=== PATIENT | male | born 1985 | race Caucasian/White ===

== ENCOUNTER 2020-10-24 17:42 | Emergency (ER) | payer SELFPAY ==
[2020-10-24 18:31] VITALS: PULSE 106; RESP 16; TEMP 36.8; O2SAT 91; BMI 27.8
--- NOTE | 2020-10-24 20:51 | ED_ITS ---
HPI - Psych General: Chief Complaint: Psychiatric Symptoms Stated Complaint: HALLUCINATIONS/ WANTS DETOX Time Seen by Provider: 10/24/20 20:37 History of Present Illness: HPI Narrative: The patient is a 35-year-old male who says he comes to the ER to get clean. He says he used methamphetamines earlier today and he has been hallucinating. He says signs are talking to him and he continues to see them. Denies suicidal and homicidal ideations. He is paranoid Context: recent drug abuse Associated psychiatric symptoms: auditory hallucinations Associated symptoms: Reports auditory hallucinations; Deny homicidal ideation or suicidal ideation Review of Systems General: Reports: 10 or more systems reviewed and unremarkable except in HPI and below Const: Denies: fatigue Eyes: Denies: change in vision, blurry vision or eye redness ENMT: Denies: throat pain, swelling of lips/tongue, ear or mastoid pain or nasal congestion Card: Denies: chest pain, palpitations, irregular heart rhythm, edema, dyspnea on exertion or orthopnea Resp: Denies: dyspnea, productive cough or non-productive cough GI: Denies: abdominal pain, diarrhea or GI cramping : Denies: flank pain, urinary frequency or urinary urgency Musc: Denies: neck pain, back pain, extremity pain, joint pain, joint redness, limited range of motion or muscle weakness Skin/Breast: Denies: rash, pruritus, erythema, skin pain or skin tenderness Neuro: Denies: headache(s), numbness in extremities, weakness in extremities, sensory changes, difficulty walking, dizziness, confusion or Slurred speech present Psych: Reports: anxiety and auditory hallucinations; Denies: suicidal ideation or homicidal ideation Endo: Denies: polyuria All/Imm: Denies: urticaria, throat swelling or tongue swelling Physical Exam Const: COMMON NORMALS: no acute distress, average body habitus, patient oriented x3, no limitations, alert and well nourished GENERAL APPEARANCE: cooperative, well kempt, well developed and anxious ORIENTATION/CONSCIOUSNESS: Yes awake, Yes oriented to person, Yes oriented to place and Yes oriented to time HENMT: COMMON NORMALS: normocephalic, external ears normal and Normal external nose present HEAD & SCALP: normal to inspection and normocephalic NOSE: Normal external nose present EXTERNAL EAR: Yes external ears normal MOUTH: Normal oral and palatal mucosa present THROAT: posterior oropharynx normal OTHER: Chronically poor dentition Eye: COMMON NORMALS: Equal, round and reactive pupils present and EOMs intact bilaterally GENERAL EYE: appearance normal, both eyes and all related structures PUPIL: Yes Equal, round and reactive pupils present Neck/C-Spine: COMMON NORMALS: full ROM, no lymphadenopathy, no meningeal signs and no JVD GENERAL: Yes normal visual inspection Lymph: LYMPHATIC: no lymphadenopathy noted Chest: COMMONS NORMALS: normal inspection of the chest and normal palpation of entire chest wall Resp: COMMON NORMALS: normal respiratory effort, No retractions, No use of accessory muscles, clear to auscultation bilaterally and percussion normal EFFORT & INSPECTION: Yes able to speak in complete sentences AUSCULTATION: clear to auscultation bilaterally PERCUSSION: percussion normal Cardio: COMMON NORMALS: no JVD, regular rate, regular rhythm, S1 normal heart sound present, S2 normal heart sound present and Peripheral pulses 2+ throughout RATE: regular rate RHYTHM: regular rhythm HEART SOUNDS: S1 normal heart sound present and S2 normal heart sound present PERIPHERAL PULSES: Peripheral pulses 2+ throughout GI: COMMON NORMALS: Normal to inspection, nondistended, normoactive bowel sounds present, Soft to palpation, non-tender and no masses INSPECTION: Yes normal to inspection PALPATION: Yes Soft to palpation : COMMON NORMALS: Yes no CVA tenderness BLADDER/KIDNEY EXAM: Yes no CVA tenderness Back/Pelvis: COMMON NORMALS: no CVA tenderness, thoracic and lumbar spine normal to inspection, no thoracic nor lumbar tenderness and thoraco-lumbar ROM normal Extremity: COMMON NORMALS: normal to inspection, full ROM, capillary refill normal, no joint enlargement and no pedal edema GENERAL: Yes normal exam except as noted Neuro: COMMON NORMALS: patient oriented x3, CN's II-XII intact bilaterally, moves all extremities, no focal motor deficits, no sensory deficits noted and gait normal SENSORIUM/ORIENTATION: Yes alert, Yes oriented to person, Yes oriented to place and Yes oriented to time MENINGEAL SIGNS: Yes no meningeal signs Psych: COMMON NORMALS: cooperative, normal affect and speech normal APPEARANCE: Yes well kempt ATTITUDE: Yes paranoid ACTIVITY/MOTOR BEHAVIOR: Yes fidgeting SPEECH: Yes normal speech MOOD & AFFECT: Yes elevated mood THOUGHT CONTENT: No Suicidality present, No Homicidality present and Yes Hallucination(s) present auditory Skin: COMMON NORMALS: no rashes or lesions noted GENERAL SKIN EXAM: no rashes or lesions noted Course Vital Signs: Vital signs: Vital Signs Temperature 98.2 F 10/24/20 18:31 Pulse Rate 106 H 10/24/20 18:31 Respiratory Rate 16 10/24/20 18:31 Pulse Oximetry 91 10/24/20 18:31 MDM - Psych MDM Narrative: Medical decision making narrative: The patient demanded to leave AGAINST MEDICAL ADVICE. I walked in the room to discuss with him and he has IV fluids going. He now denies any hallucinatory symptoms and says earlier he was not hallucinating outside of the hospital but he read a sign wrong and then looked at the sign again and thought maybe perhaps it had changed. He realized that was in his head and not real. He says the signs are not talking to him he read the sign just like I would read a sign. He is now alert and oriented x4 and not hallucinating. I asked him to stay to treat his medical conditions and he refused. I told him he could get worse and even possibly from his symptoms. He understands and accepts the risks and signed out AMA. Lab Data: Labs: Lab Results 10/24/20 10/24/20 Range/Units 21:16 21:16 WBC 15.0 H (4.0-10.0) 10^3/ uL RBC 5.37 H (4.1-5.3) 10^6/u L Hgb 15.2 (11.7-16.6) g/dL Hct 45.8 (42.0-52.0) % MCV 85.3 (80-94) fL MCH 28.3 (28.0-34.0) pg MCHC 33.2 (30.0-36.0) g/dL RDW 11.9 L (12.1-15.1) % Plt Count 406 H (130-400) 10^3/c mm MPV 9.7 (7.4-10.4) fL Neut % (Auto) 76.8 % Lymph % (Auto) 12.9 % [place] % (Auto) 9.6 % Eos % (Auto) 0.0 % Baso % (Auto) 0.4 % Neut # (Auto) 11.49 H (1.8-7.7) 10^3/u L Lymph # (Auto) 1.9 (0.8-4.8) 10^3/u L [place] # (Auto) 1.4 H (0.2-0.9) 10^3/u L Eos # (Auto) 0.0 (0.0-0.8) 10^3/u L Baso # (Auto) 0.1 (0.0-0.1) 10^3/u L Nucleated RBC % (a uto) 0 % Nucleated RBCs # 0.0 /100WBC Sodium 145 (136-145) mmol/L Potassium 4.4 (3.5-5.1) mmol/L Chloride 104 (98-107) mmol/L Carbon Dioxide 23 (22-29) mmol/L Anion Gap 22.4 H (5-19) BUN 29 H (6-20) mg/dL Creatinine 1.3 H (0.7-1.2) mg/dL GFR Calculation 62.5 L (90-130) mL/min Glucose 104 (65-115) mg/dL Calculated Osmolal ity 306 H (285-295) mOsm/k g Calcium 10.2 (8.5-10.5) mg/dL Total Bilirubin 1.0 (0.15-1.2) mg/dL AST 55 H (0-40) U/L ALT 23 (0-41) U/L Alkaline Phosphata se 73 (40-130) IU/L Total Protein 8.7 (6.6-8.7) g/dL Albumin 5.6 H (3.5-5.2) g/dL Globulin 3.1 (1.3-4.6) g/dL TSH 2.84 (0.27-4.20) uIU/ mL Salicylates < 0.3 L (3-10) mg/dL Acetaminophen < 5.0 L (10-30) ug/mL Ethyl Alcohol < 10 (0-10) mg/dL Discharge Plan Discharge Patient Disposition: Left Against Medical Advice Clinical Impression: Methamphetamine abuse Coding Level of Care Code ED [employer] for [employer] Fwd Exam Comprehensive
[2020-10-24] MEDS: LORazepam 2 mg/mL INJ 1 mL 1 MG IVP (21:24)
[2020-10-24 21:25] LABS: Basophils # 0.1 10^3/uL (0.0-0.1); Basophils % 0.4 %; Hematocrit 45.8 % (42.0-52.0); Hemoglobin 15.2 g/dL (11.7-16.6); Lymphocytes # 1.9 10^3/uL (0.8-4.8); Lymphocytes % 12.9 %; Mean Corpuscular HGB Conc 33.2 g/dL (30.0-36.0); Mean Corpuscular Hemoglobin 28.3 pg (28.0-34.0); Mean Corpuscular Volume 85.3 fL (80-94); Mean Platelet Volume 9.7 fL (7.4-10.4); Monocytes # 1.4 10^3/uL (0.2-0.9); Monocytes % 9.6 %; Neutrophils # 11.49 10^3/uL (1.8-7.7); Neutrophils % 76.8 %; Nucleated Red Blood Cells % 0 %; Platelet Count 406 10^3/cmm (130-400); Red Blood Count 5.37 10^6/uL (4.1-5.3); Red Cell Distribution Width 11.9 % (12.1-15.1)
[2020-10-24] MEDS: sodium chloride 0.9% 1,000 ML 999 ML IV (21:25)
--- NOTE | 2020-10-24 22:08 | PC.NURSE ---
pt left AMA.
[2020-10-24 22:32] LABS: Acetaminophen < 5.0 ug/mL (10-30); Alanine Aminotransferase 23 U/L (0-41); Albumin Level 5.6 g/dL (3.5-5.2); Alcohol Level < 10 mg/dL (0-10); Alkaline Phosphatase 73 IU/L (40-130); Anion Gap 22.4 (5-19); Aspartate Amino Transferase 55 U/L (0-40); Blood Urea Nitrogen 29 mg/dL (6-20); Calcium 10.2 mg/dL (8.5-10.5); Carbon Dioxide 23 mmol/L (22-29); Chloride 104 mmol/L (98-107); Creatinine Clr Calc Pharmacy 90.5191; Globulin 3.1 g/dL (1.3-4.6); Glomerular Filtration Rate 62.5 mL/min (90-130); Glucose 104 mg/dL (65-115); Osmolality Calculated 306 mOsm/kg (285-295); Potassium 4.4 mmol/L (3.5-5.1); Salicylate < 0.3 mg/dL (3-10); Sodium 145 mmol/L (136-145); Thyroid Stimulating Hormone 2.84 uIU/mL (0.27-4.20); Total Protein 8.7 g/dL (6.6-8.7)
== END 2020-10-24 22:08 | disposition left against medical advice (07) ==
PROVIDERS: Emergency Provider Family Medicine
DX: F15.10 Other stimulant abuse, uncomplicated (principal); Z53.21 Procedure and treatment not carried out due to patient leaving prior to being seen by health care provider
CPT/HCPCS: 80053; 80307; 84443; 85025; 96361; 96374; 99283; J2060; J7030